=== PATIENT | female | born 2000 | race Two or more races ===

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

== ENCOUNTER 2019-03-16 22:59 | Emergency (ER) | payer OTHER ==
[~2019-03-16] VITALS: Ht 154.9 cm; Wt 51.0 kg
[2019-03-17 02:04] VITALS: BP 120/77
== END 2019-03-17 02:07 | disposition home or self-care (01) ==
LOC: EMS 23:02
DX: S63.682A Other sprain of left thumb, initial encounter (principal); W22.8XXA Striking against or struck by other objects, initial encounter; Y93.89 Activity, other specified; Y92.89 Other specified places as the place of occurrence of the external cause; Y99.8 Other external cause status

== ENCOUNTER 2022-12-06 02:39 | Emergency (ER) | payer OTHER ==
[~2022-12-06] VITALS: Ht 154.9 cm; Wt 45.0 kg
[2022-12-06 02:40] VITALS: TEMP 98.4
[2022-12-06] MEDS ORDERED: SODIUM CHLORIDE 0.9% 1,000 ML IV ONE (03:00)
[2022-12-06] MEDS ORDERED: KETOROLAC TROMETHAMINE 30 MG/ML VIAL IVP ONE (03:00)
[2022-12-06] MEDS ORDERED: MAG HYDROX/AL HYDROX/SIMETH 30 ML SUSP UDCUP PO ONE (03:00)
[2022-12-06] MEDS ORDERED: ONDANSETRON HCL 4 MG/2 ML VIAL IVP ONE (03:00)
[2022-12-06] MEDS ORDERED: FAMOTIDINE 20 MG/2 ML VIAL IVP ONE (03:00)
[2022-12-06 03:01] LABS: BASOPHILS % (AUTO) 0.3 % (0.0-2.0); EOSINOPHILS % (AUTO) 0.2 % (1.0-6.0); HEMATOCRIT 39.1 % (36-46); HEMOGLOBIN 12.9 g/dL (12.0-16.0); LYMPHOCYTES # (AUTO) 1.9 K/uL (1.0-4.8); LYMPHOCYTES % (AUTO) 16.1 % (22.0-44.0); MEAN CORPUSCULAR HEMOGLOBIN 29.3 pg (26.0-34.0); MEAN CORPUSCULAR VOLUME 89 fL (80-100); MONOCYTES # (AUTO) 0.7 K/uL (0.1-1.0); MONOCYTES % (AUTO) 5.5 % (2.0-9.0); NEUTROPHILS # (AUTO) 9.3 K/uL (1.8-7.7); NEUTROPHILS % (AUTO) 77.9 % (40.0-70.0); PLATELET COUNT (AUTO) 249 K/uL (150-450); RED BLOOD CELL COUNT(AUTO) 4.39 MIL/uL (4.00-5.20); RED CELL DISTRIBUTION WIDTH 13.3 % (11.5-14.5); WHITE BLOOD COUNT (AUTO) 11.9 K/uL (4.5-11.0)
[2022-12-06 03:09] LABS: ANION GAP 13 mmol/L (8-16); CALCIUM, TOTAL 9.9 mg/dL (8.8-10.5); CARBON DIOXIDE 27 mmol/L (22-29); CHLORIDE 103 mmol/L (98-107); CREATININE 0.65 mg/dL (0.60-1.30); GLOMERULAR FILTR. RATE CALC > 60 mL/min (>60); GLUCOSE,RANDOM 122 mg/dL (70-110); POTASSIUM 3.6 mmol/L (3.5-5.1); SODIUM SERUM 143 mmol/L (136-145); UREA NITROGEN, BLOOD 9 mg/dL (7-18)
[2022-12-06 03:20] LABS: ALANINE AMINOTRANSFERASE 17 U/L (12-78); ALBUMIN 4.1 g/dL (3.4-5.0); ALKALINE PHOSPHATASE 73 U/L (46-116); ASPARTATE AMINOTRANSFERASE 17 U/L (15-37); BILIRUBIN,TOTAL 0.3 mg/dL (0.1-1.0); HCG,QUANTITATIVE < 1 mIU/mL (0-6); LIPASE 28 U/L (16-77); TOTAL PROTEIN, SERUM 7.9 g/dL (6.4-8.2)
[2022-12-06] MEDS ORDERED: SODIUM CHLORIDE 0.9% 100 ML ONE (03:30)
[2022-12-06] MEDS ORDERED: IOHEXOL 350 MG/ML 100 ML VIAL ONE (03:30)
[2022-12-06 04:31] VITALS: BP 108/56; PULSE 70; RESP 15
[2022-12-06] MEDS ORDERED: CEPHALEXIN MONOHYDRATE 500 MG CAPSULE PO ONE (04:45)
== END 2022-12-06 04:48 | disposition home or self-care (01) ==
LOC: EMS 02:39
DX: R10.33 Periumbilical pain (principal); R11.2 Nausea with vomiting, unspecified
CPT/HCPCS: 99285; 74177; 96374; 96375; 96361; 80053; 83605; 83690; 84702; 85025; 36415; J3490; J1885; J2405; Q9967; J7030; J7050

== ENCOUNTER 2024-03-21 11:35 | Emergency (ER) | payer OTHER ==
[~2024-03-21] VITALS: Ht 154.9 cm; Wt 54.5 kg
[2024-03-21 11:36] VITALS: TEMP 98.5
[2024-03-21] MEDS ORDERED: PREN-155 PO (11:36)
[2024-03-21] MEDS ORDERED: PREN1TAB26 PO (12:22)
[2024-03-21] MEDS: ACETAMINOPHEN 325 MG TABLET PO ONE (12:25)
[2024-03-21 13:14] LABS: BASOPHILS % (AUTO) 0.1 % (0.0-2.0); EOSINOPHILS % (AUTO) 0 % (1.0-6.0); HEMATOCRIT 33.8 % (36-46); HEMOGLOBIN 11.6 g/dL (12.0-16.0); LYMPHOCYTES # (AUTO) 0.8 K/uL (1.0-4.8); LYMPHOCYTES % (AUTO) 4.8 % (22.0-44.0); MEAN CORPUSCULAR HEMOGLOBIN 29.9 pg (26.0-34.0); MEAN CORPUSCULAR HGB CONC 34.3 G/dL (31.0-37.0); MEAN CORPUSCULAR VOLUME 87 fL (80-100); MONOCYTES # (AUTO) 0.7 K/uL (0.1-1.0); NEUTROPHILS # (AUTO) 15.2 K/uL (1.8-7.7); PLATELET COUNT (AUTO) 220 K/uL (150-450); RED BLOOD CELL COUNT(AUTO) 3.88 MIL/uL (4.00-5.20); RED CELL DISTRIBUTION WIDTH 12.7 % (11.5-14.5); WHITE BLOOD COUNT (AUTO) 16.7 K/uL (4.5-11.0)
[2024-03-21 13:15] LABS: NEUTROPHILS % (AUTO) 91.1 % (40.0-70.0)
[2024-03-21] MEDS: MORPHINE SULFATE 4 MG/ML SYRINGE IVP ONE (13:16)
[2024-03-21 13:23] LABS: ANION GAP 11 mmol/L (8-16); CARBON DIOXIDE 22 mmol/L (22-29); CHLORIDE 102 mmol/L (98-107); CREATININE 0.51 mg/dL (0.60-1.30); GLOMERULAR FILTR. RATE CALC > 60 mL/min (>60); GLUCOSE,RANDOM 81 mg/dL (70-110); POTASSIUM 3.4 mmol/L (3.5-5.1); SODIUM SERUM 135 mmol/L (136-145); UREA NITROGEN, BLOOD 3 mg/dL (7-18)
[2024-03-21] MEDS: SODIUM CHLORIDE 0.9% 1,000 ML IV ONE (13:45)
[2024-03-21 13:50] LABS: HCG,QUANTITATIVE 33386 mIU/mL (0-6); LIPASE 24 U/L (16-77)
[2024-03-21 14:49] LABS: APPEARANCE,URINE HAZY (CLEAR); COLOR,URINE DARK YELLOW (YELLOW); GLUCOSE, URINE (UA) NEGATIVE (NEGATIVE); KETONES,URINE NEGATIVE (NEGATIVE); LEUKOCYTE ESTERASE ,URINE LARGE (NEGATIVE); NITRATE,URINE POSITIVE (NEGATIVE); OCCULT BLOOD,URINE MODERATE (NEGATIVE); PROTEIN,URINE 30-70 mg/dL (NEGATIVE); SPECIFIC GRAVITIY, URINE 1.016 (1.003-1.030)
[2024-03-21 15:20] LABS: BILIRUBIN,URINE MODERATE (NEGATIVE)
[2024-03-21 15:23] LABS: BACTERIA,URINE Moderate /HPF (None Seen); SQUAMOUS EPITHELIAL CELL,UR Few /LPF (None Seen); WBC,URINE 51-100 /HPF (0-5)
[2024-03-21 15:25] VITALS: BP 126/70; PULSE 95; RESP 22; O2SAT 100
[2024-03-21] MEDS ORDERED: PYRI25TA4 PO (15:36)
[2024-03-21] MEDS ORDERED: CEFP200T12 PO (15:36)
[2024-03-21] MEDS: CEFPODOXIME PROXETIL 200 MG TABLET PO ONE (15:45)
== END 2024-03-21 15:52 | disposition home or self-care (01) ==
LOC: EMS 11:35
DX: O23.42 Unspecified infection of urinary tract in pregnancy, second trimester (principal); O20.8 Other hemorrhage in early pregnancy; O26.892 Other specified pregnancy related conditions, second trimester; Z3A.16 16 weeks gestation of pregnancy
CPT/HCPCS: 99285; 96374; 76801; 96361; 80048; 81001; 83690; 84702; 85025; 87077; 87086; 87186; 86901; 36415; J2270; J7030